=== PATIENT | female | born 1970 | race Asian ===

== ENCOUNTER → 2016-10-11 | Outpatient (CLI) | payer OTHER, BC ==
[~2016-10-11] VITALS: Ht 154.9 cm; Wt 47.6 kg
[~2016-10-11] MED LIST: DOXY100T PO; IOHEXOL 300 MG/ML 50 ML VIAL. INT UTERIN ONE
[2016-10-11 11:20] LABS: NEG OBC UR NEG; POS OBC UR POS
[2016-10-11 11:41] VITALS: BP 95/64
--- NOTE | 2016-10-11 13:19 | RAD ---
Hysterosalpingogram-unsuccessful study, 10/11/2016: History: Infertility The patient gives a history of infertility as well as previous cervical surgery. Following cleansing of the cervix with Betadine, attempts were made at passage of the balloon occlusion catheter into the cervical canal. The balloon catheter would pass only a short distance into the cervical os and could not be advanced further despite repeated attempts. When the balloon was inflated at this level and contrast injected, the contrast would preferentially flow into the vagina with ejection of the catheter from the cervical os. The uterine cavity and fallopian tubes therefore could not be opacified at this time. Difficulty with cervical cannulation is likely related to the given history of previous cervical surgery. The patient tolerated the attempted procedure procedure well and left the department in good condition. 1.2 minutes of fluoroscopy time was utilized. 4 fluoroscopic spot images were recorded.
== END | disposition home or self-care (01) ==
LOC: RAD 10:17
PROVIDERS: ATTEND Obstetrics & Gynecology
DX: N97.9 Female infertility, unspecified (principal)
CPT/HCPCS: 58340; 74740; 81025

== ENCOUNTER → 2020-12-18 | Outpatient (CLI) | payer OTHER ==
[2016-10-11 11:41] VITALS: BP 95/64
[~2020-12-18] VITALS: Ht 157.5 cm; Wt 45.4 kg
[~2020-12-18] MED LIST changes: -IOHEXOL 300 MG/ML 50 ML VIAL. INT UTERIN ONE; +SINCALIDE 0.9 MCG in IV NORMAL SALINE 50ML 30 ML IV ONE
--- NOTE | 2020-12-18 12:24 | RAD ---
HEPATOBILIARY SCAN WITH EJECTION FRACTION 12/18/2020 12:22 PM History: epigastric pain Procedure: Serial static images are obtained of the liver and biliary system in the frontal projectio n following IV administration of 5 mCi of Technetium 99m Choletec. After filling of the gallbladder , 0.9 mcg of sincalide were infused over 30 minutes and dynamic imaging continued over this period. T he gallbladder ejection fraction was calculated. Findings: There is prompt hepatic clearance of tracer from the blood pool. There is homogeneous distr ibution throughout the liver. The gallbladder ejection fraction measures 82% (normal gallbladder EF is 35% or greater). IMPRESSION: 1. The cystic duct and common bile duct are patent. Negative for acute cholecystitis. 2. The gallbladder ejection fraction is normal Electronically signed by: Juanjose Ruff MD (12/18/2020 12:22 PM) [id number]
--- NOTE | 2020-12-18 12:27 | RAD ---
Exam: Right Upper Quadrant Ultrasound 12/18/2020 7:54 AM Indication: Reason: EPIGASTRIC PAIN / Technique: Multiple realtime grayscale sonographic images were obtained over the abdomen. Static imag es were submitted for interpretation. Comparisons: None Findings: Visualized portions of the pancreas are unremarkable. Visualized portions of the aorta and IVC are un remarkable. The liver is normal in size measuring 11 cm longitudinally. There is a normal hepatic echotexture. N o focal lesions are identified. The gallbladder is nondistended. There is no evidence for cholelithiasis. There is no wall thickening , or pericholecystic fluid. The common bile duct is. Top normal diameter at 6 mm. The Right kidney is normal in size measuring 10 cm longitudinally. There is no evidence for mass, nep hrolithiasis, or hydronephrosis. No ascites is identified Impression: No sonographic evidence of acute intra-abdominal abnormality Electronically signed by: Juanjose Ruff MD (12/18/2020 12:25 PM) [id number]
== END ==
LOC: US 09:10
PROVIDERS: ATTEND Internal Medicine Gastroenterology
DX: R10.13 Epigastric pain (principal)
CPT/HCPCS: 76705; 78227; A9537; J2805